=== PATIENT | female | born 1960 | race Caucasian/White ===

== ENCOUNTER 2020-12-27 08:08 | Outpatient (CLI) | payer BC | END 2020-12-27 08:09 | disposition home or self-care (01) | LOC: CSHCT 08:08 | PROVIDERS: ATTEND Family Medicine | DX: R10.32 Left lower quadrant pain (principal); N83.202 Unspecified ovarian cyst, left side | CPT/HCPCS: 74177; 82565 ==

== ENCOUNTER 2022-05-20 13:38 | Outpatient (CLI) | payer BC | END 2022-05-20 13:39 | disposition home or self-care (01) | LOC: CSHMAMMO 13:38 | PROVIDERS: ATTEND Family Medicine | DX: Z12.31 Encounter for screening mammogram for malignant neoplasm of breast (principal) | CPT/HCPCS: 77063; 77067 ==

== ENCOUNTER 2022-06-10 15:20 | Outpatient (CLI) | payer BC | END 2022-06-10 15:21 | disposition home or self-care (01) | LOC: CSHMAMMO 15:20 | PROVIDERS: ATTEND Family Medicine | DX: M81.0 Age-related osteoporosis without current pathological fracture (principal) | CPT/HCPCS: 77080 ==

== ENCOUNTER 2023-06-15 15:30 | Outpatient (CLI) | payer BC | END 2023-06-15 15:31 | disposition home or self-care (01) | LOC: CSHMAMMO 15:30 | PROVIDERS: ATTEND Family Medicine | DX: Z12.31 Encounter for screening mammogram for malignant neoplasm of breast (principal) | CPT/HCPCS: 77063; 77067 ==

== ENCOUNTER 2023-06-30 08:14 | Outpatient (CLI) | payer OTHER | END 2023-06-30 08:15 | disposition home or self-care (01) | LOC: CSHCT 08:14 | PROVIDERS: ATTEND Family Medicine | DX: Z82.49 Family history of ischemic heart disease and other diseases of the circulatory system (principal) | CPT/HCPCS: 75571 ==

== ENCOUNTER 2024-05-12 10:33 | Outpatient (CLI) | payer BC | END 2024-05-12 10:34 | disposition home or self-care (01) | LOC: CSHULT 10:33 | PROVIDERS: ATTEND Internal Medicine Cardiovascular Disease | DX: E07.89 Other specified disorders of thyroid (principal); E04.2 Nontoxic multinodular goiter | CPT/HCPCS: 76536 ==

== ENCOUNTER 2024-05-19 09:42 | Outpatient (CLI) | payer BC ==
[2024-05-19] MEDS ORDERED: Iopamidol 370 76% 100 ML VIAL ONE (11:13)
== END 2024-05-19 09:43 | disposition home or self-care (01) ==
LOC: CSHCT 09:42
PROVIDERS: ATTEND Internal Medicine Cardiovascular Disease
DX: I65.23 Occlusion and stenosis of bilateral carotid arteries (principal); E04.2 Nontoxic multinodular goiter
CPT/HCPCS: 70498; 82565; Q9967